=== PATIENT | male | born 1995 | race Caucasian/White ===

== ENCOUNTER 2017-07-14 22:02 | Emergency (ER) | payer SELFPAY ==
[2017-07-14] MEDS ORDERED: Ketorolac Tromethamine 60 MG/2 ML VIAL ONE (23:22)
== END 2017-07-14 23:48 | disposition home or self-care (01) ==
LOC: ERS 22:02
DX: J11.1 Influenza due to unidentified influenza virus with other respiratory manifestations (principal); Z87.891 Personal history of nicotine dependence; Z79.51 Long term (current) use of inhaled steroids; Z79.899 Other long term (current) drug therapy
CPT/HCPCS: 96372; J1885

== ENCOUNTER 2017-11-06 12:10 | Emergency (ER) | payer OTHER ==
[2017-11-06] MEDS ORDERED: Ibuprofen 800 MG TAB ONE (14:02)
== END 2017-11-06 14:12 | disposition home or self-care (01) ==
LOC: ERS 12:10
DX: J02.9 Acute pharyngitis, unspecified (principal)
CPT/HCPCS: 87081; 87430; 99283